=== PATIENT | female | born 1960 | race Caucasian/White ===

== ENCOUNTER 2017-03-15 12:00 | Emergency (ER) | payer MEDICAID, MEDICARE ==
[~2017-03-15] VITALS: Ht 157.5 cm; Wt 131.8 kg
[2017-03-15 12:07] VITALS: BP 191/99; PULSE 61; RESP 20; O2SAT 97
--- NOTE | 2017-03-15 14:18 | ED.REPORT ---
HPI-Psychiatric Illness Date of Service Mar 15, 2017 ED Provider: Parminder Barraza History of Present Illness: 56yo female reports worsening stress and anxiety associated with homelessness and difficult sibling relationships. She recently relocated to this area via [place], [place], and [place]. No SI/HI. She denies drug or alcohol use. Additionally, she needs sutures removed from L radial index finger MIP, in place x 2 weeks. Originally seen at [place] [facility]. She is out of home meds: Zoloft, Lorazepam, and Nexium. She has Atenolol at home, takes 50mg once daily. Nursing Notes Stated Complaint: SUTURE REMOVAL Chief Complaint: Psychiatric Complaint Nursing Notes Reviewed: Yes Allergies: Coded Allergies: lisinopril (Verified Allergy, Mild, 03/15/17) Uncoded Allergies: No Known Allergies (Allergy, Severe, 02/14/05) Scheduled Omeprazole (Omeprazole) 20 Mg Tablet.dr 20 MG PO DAILY Sertraline HCl (Zoloft) 50 Mg Tablet 50 MG PO DAILY Scheduled PRN Hydroxyzine Pamoate (Vistaril) 25 Mg Capsule 25 MG PO TID PRN PRN For Anxiety General Time Seen by MD: 13:57 Chief Complaint Anxious, Depressed Hx Obtained From: Patient Arrived By: Walk-in Onset Occurred: More than a week ago... (>6 months) Recent Healthcare: Recent doctor visit Similar Sx Previous: Yes Risk-Psychiatric Illness Suicide Risk Stratification RF Statements: Risk factors reviewed Past Medical History Past Medical History Reports: GERD, Hypertension, Mental illness Reports: Obesity Smoking History Never Smoker Social History Alcohol Use: Denies alcohol use Drug Use: Denies drug use Other Social History: Homeless Ambulatory Status Independent Review of Systems Review of Systems Note: L index finger wound well healed. Constitutional: Denies: Chills, Fever Respiratory: Denies: Shortness of breath Cardiovascular: Denies: Chest pain GI: Denies: Abdominal pain Psychiatric: Reports: Anxiety, Depression, Stress, Denies: Hallucinations, auditory, Hallucinations, visual, Homicidal ideation , Suicidal ideation Complete sys rev & neg: except as marked. Physical Exam Initial Vital Signs Vital Signs (First) Date Time Temp Pulse Resp B/P Pulse Ox O2 Delivery O2 Flow Rate FiO2 03/15/17 12:07 36.4 61 20 191/99 97 Room Air Initial VS: Reviewed General/Constitutional: Awake, Alert, Not toxic appearing Behavior: Positive: Anxious, Restless Neurologic: Oriented X3, Speech NL, No motor deficits, No sensory deficits, Gait NL Psychiatric: Not suicidal, Not homicidal, No hallucinations Abnormal Mood/Affect: Positive: Anxious Respiratory / Chest: Breath sounds NL, Breath sounds = bilat, No respiratory distress Cardiovascular: Heart rate NL, Regular rhythm, Heart sounds NL Abdomen: Soft Rash / Lesion Notes: L index finger radial PIP joint well healed, easily removed 7 sutures. Re-Eval/Medical Decision Med Decision/Clinical Course Pt. was seen by Jennifer TRISTAN, and has Tracy Halbur and [facility] follow up. Breathalizer negative, never donated UA to do UDS. Meds refilled but for Atenolol which she has supply of at home. Substituting Hydroxyzine for Lorazepam. Encouraged follow up with [facility] to establish care. Pt. acknowledged understanding of treatment plan. Counseled Regarding: Diagnosis, Lab results, Need for follow-up, When/why to return to ED Discharge & Departure Shift Change Sign-Out Response to Therapy: Improved Departure Notes BP much improved to 140/89. Impression: Primary Impression: Anxiety Additional Impressions: Visit for suture removal Hypertension Hypertension type: essential hypertension Qualified Code: I10 - Essential ( primary) hypertension Homelessness )( Condition at Discharge: No danger to self, No danger to others Disposition: Home Patient Instructions: Anxiety (ED) Additional Instructions: Take meds as prescribed, use community resources provided by [facility]. [facility] Return to ER if anything worsens. Referrals: [facility] E[facility]vising Provider for APC: Jerson Littlejohn MD, Christopher R PAC Mar 15, 2017 14:18
[2017-03-15] MEDS ORDERED: hydrOXYzine Pamoate 25 mg Capsule PO ONE (15:30)
[2017-03-15 16:08] VITALS: BP 140/89; PULSE 60; RESP 14; O2SAT 99
[2017-03-15] MEDS ORDERED: HYDR25CA PO (16:29)
[2017-03-15] MEDS ORDERED: OMEP20TA86 PO (16:29)
[2017-03-15] MEDS ORDERED: SERT50TA PO (16:29)
[2017-03-15 16:58] VITALS: BP 140/89; PULSE 60; RESP 14; O2SAT 99
== END 2017-03-15 16:59 | disposition home or self-care (01) ==
LOC: SED 12:00
DX: F41.9 Anxiety disorder, unspecified (principal); I10 Essential (primary) hypertension; K21.9 Gastro-esophageal reflux disease without esophagitis; E66.9 Obesity, unspecified; Z48.02 Encounter for removal of sutures; Z59.0 Homelessness; Z76.0 Encounter for issue of repeat prescription; Z68.43 Body mass index [BMI] 50.0-59.9, adult; Z88.8 Allergy status to other drugs, medicaments and biological substances
CPT/HCPCS: 82075; 90791; 99284; Q0177